=== PATIENT | female | born 1940 | race Caucasian/White ===

== ENCOUNTER → 2021-02-01 | Outpatient (CLI) | payer MEDICARE | END | disposition home or self-care (01) | LOC: LAB 07:56 | DX: Z20.822 Contact with and (suspected) exposure to COVID-19 (principal) | CPT/HCPCS: 87426 ==

== ENCOUNTER → 2021-02-01 | Outpatient (CLI) | payer MEDICARE ==
[~2021-02-01] VITALS: Ht 160 cm; Wt 63.0 kg
[~2021-02-01] MED LIST: IOHEXOL-300 50 ML BOTTLE IV ONE; LIDOCAINE HCL 1% 20ML VIAL (Pyxis) INJ ONE; METHYLPREDNISOLONE ACETATE 40MG/ML VIAL IM ONE; SODIUM BICARBONATE 4% (2.4MEQ) 5ML VIAL IV ONE; SODIUM CHLORIDE 0.9% 10ML VIAL ONE
== END | disposition home or self-care (01) ==
LOC: RAD 07:49
DX: M16.12 Unilateral primary osteoarthritis, left hip (principal); Z79.899 Other long term (current) drug therapy
CPT/HCPCS: 20610; 77002; J1030; J3490; Q9967; 20611